=== PATIENT | male | born 1960 | race Caucasian/White ===

== ENCOUNTER 2020-09-08 16:25 | Outpatient (CLI) | payer OTHER, SELFPAY ==
[2016-10-08 06:35] VITALS: BMI 24.3
== END 2020-09-08 16:45 | disposition home or self-care (01) ==
LOC: IMMUN 09-09 16:29
PROVIDERS: PCP Family Medicine; Referring Provider Family Medicine; Visit Provider Family Medicine
DX: Z23 Encounter for immunization (principal)
CPT/HCPCS: 0031A; 91303